=== PATIENT | male | born 1985 | race African-American/Black ===

== ENCOUNTER 2025-05-06 20:21 | Inpatient (IN) | payer OTHER ==
[~2025-05-06] VITALS: Ht 182.9 cm; Wt 159.0 kg
--- NOTE | 2025-05-06 22:11 | Physician Documentation ---
History of Present Illness ~ Chief Complaint: See Chief Complaint Stated Complaint: HEAT RELATED Time Seen by MD: 22:10 Mode of Arrival: EMS HPI Patient presents to the emergency room with nausea and vomiting and cramping. 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 States when he got home he drank a combination of water and ice cold Gatorade from the refrigerator and began to feel ill and vomiting. No prior instances. Patient is unfamiliar with [place] heat. States he did have some chest discomfort when he had some cramping in his diaphragm as reported. History of diabetes on metformin Medication Reconciliation Allergies: Coded Allergies: No Known Allergies (Unverified , 05/06/25) Review of Systems ROS All review of systems negative except as per HPI Physical Exam Vital Signs: Temperature: 99.2, Source: Oral, Heart Rate: 117, Respiratory Rate: 15, BP: 144/82, Pulse Oximetry: 94, Weight: 159.090 Physical Exam General: Patient is awake, alert, oriented x4 in no acute distress, obese Head: Normocephalic and atraumatic. Eyes: Conjunctival normal. EOMI. PERRL. ENT: Mucous membranes moist. Neck: Supple, trachea is midline. Chest: Clear to auscultation bilaterally without rales, rhonchi, or wheezes. There is no accessory muscle use or retractions. Cardiac: Tachycardic and regular without murmurs, gallops, or rubs. Abd: Soft, nondistended, nontender, with normoactive bowel sounds. No guarding, rebound, or rigidity. Progress Results/Orders Results/Orders Orders - BERHANE MACHADO MD Normal Saline 1,000ml Iv Bolus (05/06/25 23:15) Page Hospitalist (05/06/25 23:14) Fill Out Med Reconciliation (05/06/25 23:14) Completed Orders - BERHANE MACHADO MD Cbc/Diff (05/06/25 22:14) MG (05/06/25 22:14) BMP (05/06/25 22:14) Hs Troponin I W Calculations (05/06/25 22:14) Normal Saline 1000ml (0.9% Sodium Chlori (05/06/25 22:15) Ondansetron Inj. (Zofran 4mg/2ml Vial) (05/06/25 22:15) CK (05/06/25 22:17) Medications Received in ER Medications (Trade) Dose Ordered Sig/Igor Route PRN Reason Start Time Stop Time Status Last Admin Dose Admin Sodium Chloride 1,000 ml @ 1,000 mls/hr ONCE ONCE IV 05/06/25 22:15 05/06/25 23:14 05/06/25 22:21 1,000 MLS/HR (Zofran 4mg/2ml vial) 4 mg ONCE ONCE IV 05/06/25 22:15 05/06/25 22:16 DC 05/06/25 22:19 4 MG Vital Signs 05/06/25 05/06/25 05/06/25 20:23 20:28 21:00 Temp 99.2 99.2 Pulse 115 117 Resp 20 17 15 B/P (MAP) 140/75 144/82 (102) Pulse Ox 94 94 Laboratory Tests Test 05/06/25 22:31 White Blood Count 16.7 H Red Blood Count 6.08 Hemoglobin 17.7 Hematocrit 50.9 Mean Corpuscular Volume 83.8 Mean Corpuscular Hemoglobin 29.1 Mean Corpuscular Hemoglobin Concent 34.8 Red Cell Distribution Width 13.9 Platelet Count 264 Mean Platelet Volume 8.8 Neutrophils (%) (Auto) 83.8 H Lymphocytes (%) (Auto) 9.4 L Monocytes (%) (Auto) 6.5 Eosinophils (%) (Auto) 0 Basophils (%) (Auto) 0.3 Neutrophils # (Auto) 14.0 H Lymphocytes # (Auto) 1.6 Monocytes # (Auto) 1.1 H Eosinophils # (Auto) 0.0 Basophils # (Auto) 0.1 CBC Comment Sodium Level 139 Potassium Level 5.3 H Chloride Level 104 Carbon Dioxide Level 23.0 L Anion Gap 12 Blood Urea Nitrogen 22 H Creatinine 1.99 H Estimated GFR/1.73 m2 38 BUN/Creatinine Ratio 11.1 Glucose Level 111 H Calcium Level 10.0 Magnesium Level 2.1 Total Creatine Kinase 796 H Troponin I High Sensitivity 35 Albumin 5.1 H Chemistry Comments Medical Decision Making Findings Patient presented to the emergency room with vomiting and generally feeling ill as per HPI. Differentials include but are not limited to heat exhaustion, dehydration, kidney injury, electrolyte disturbances, DKA therefore emergent labs ordered which did show significant decreased renal function. We do not have any labs previously to compare this to. Given his history and home he presented to the emergency room I suspect acute kidney injury. Fluid resuscitation initiated. Departure Admitted to Inpatient Unit: yes, to hospitalist Impression: Primary Impression: Acute kidney injury Additional Impression: Heat exhaustion Condition: Guarded Referrals: NO PRIMARY CARE PROVIDER (PCP) Signature Scribe Signature: No scribe Attestation: The note accurately reflects work and decisions made by me.Berhane Machado MD 05/06/25 23:17 BERHANE MACHADO MD May 06, 2025 22:11
[2025-05-06] MEDS: ondansetron/PF 4mg/2ml inj IV ONE (22:19)
[2025-05-06] MEDS: normal saline 1000ml 1,000 ML IV ONE (22:21)
[2025-05-06 22:40] LABS: MEAN PLATELET VOLUME 8.8 FL (7.4-10.4); RED CELL DISTRIBUTION WIDTH 13.9 % (11.5-14.5)
[2025-05-06 22:53] LABS: CREATININE 1.99 MG/DL (0.60-1.10); TOTAL CARBON DIOXIDE 23.0 MMOL/L (24-32); eCRCL 56 ML/MIN; eGFR 38 ML/MIN
[2025-05-07] VITALS (8 sets, daily range): BP systolic 114–136; BP diastolic 52–78; PULSE 59–94; RESP 12–19; TEMP 97.3–97.9; O2SAT 93–99
[2025-05-07] MEDS: normal saline 1000ml 1,000 ML IV ONE (00:02)
[2025-05-07] MEDS ORDERED: METF-1203 PO (01:10)
[2025-05-07] MEDS ORDERED: TIRZ5PEN SUBCUT (02:32)
[2025-05-07] MEDS: normal saline 1000ml 1,000 ML IV SCH (02:59)
[2025-05-07] MEDS ORDERED: HYDROcodone/acetaminophen 5mg/325mg tablet PO PRN (03:20)
[2025-05-07] MEDS ORDERED: magnesium hydroxide 30ml (MOM) UD suspension PO PRN (03:20)
[2025-05-07] MEDS ORDERED: dextrose 50%-water 50ml dispensing syringe IV PRN ×2 (03:20)
[2025-05-07] MEDS ORDERED: magnesium sulf-water 2g/50mL 50 ML IV PRN (03:20)
[2025-05-07] MEDS ORDERED: DEXTROSE 15 GM of carb/4 tabs (each vial/BOTTLE has 4 tablets) PO PRN ×2 (03:20)
[2025-05-07] MEDS ORDERED: potassium Cl 40MEQ/1/2NS 520ml 520 ML IV PRN (03:20)
[2025-05-07] MEDS ORDERED: glucagon, human recombinant 1mg kit SUBCUT PRN (03:20)
[2025-05-07] MEDS ORDERED: mag hydrox/Alum hydrox/simeth 30ml oral suspension PO PRN (03:20)
[2025-05-07] MEDS ORDERED: magnesium sulf-water 4G/100mL 100 ML IV PRN (03:20)
[2025-05-07] MEDS ORDERED: potassium Cl 20 mEq SR tablet PO PRN ×2 (03:20)
[2025-05-07] MEDS ORDERED: ondansetron/PF 4mg/2ml inj IV PRN (03:20)
[2025-05-07] MEDS ORDERED: magnesium Cl slow-release 64mg tablet PO PRN (03:20)
--- NOTE | 2025-05-07 03:58 | HISTORY AND PHYSICAL-Residence ---
History & Physical Providers to CC Resident Creating Document: MASHA PIERCE, RES CC: GERRY CEDILLO MD ~ History of Present Illness Reason for Admit\Complaint: Cramps and dizziness History of Present Illness Attestation I agree with the residents assessment and plan as below: Plan: continue IVF at 150cc/hr repeat cpk Q12hr repeat bmp CCT 50 min using HIPPA compliant A/V technology A 39-year-old male with a past medical history of diabetes mellitus type 2 and sleep apnea presented to the ED in view of lightheadedness, feeling dizzy and cramping in legs and arms. Patient states that he was moving boxes about 4000 into his truck from 5:00 a.m. to 7:00 p.m. in the evening. After all the work, patient was having lot of discomfort and therefore he later. He was unable to sleep with all the cramping that has become worse in his chest arbs and the antibody. Patient also endorses vomitings and disability to read. Patient denies chills or similar episodes in the past. 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 His primary care doctor is Dr. Junior at [place], [place] ROS ROS All other systems reviewed in full and negative except for the pertinent positives mentioned in the HPI Exam Vitals: Vital Signs Date Time Temp Pulse Resp B/P (MAP) Pulse Ox O2 Delivery O2 Flow Rate FiO2 05/07/25 02:15 97.7 76 16 136/77 (96) 99 Room Air General: General: Morbidly obese young male, Alert, awake, oriented, not in acute distress HEENT: PERRLA, no icterus, pallor, lymphadenopathy, carotid bruit Respiratory system: Bilateral vesicular breath sounds heard, no adventitious breath sounds CVS: S1-S2 heard, no murmurs/rubs/gallop GI: Soft, nontender, no organomegaly, no guarding/rigidity, bowel sounds present Neuro: No focal neurological deficits present Extremities: No edema cyanosis clubbing/deformities Skin: Warm and dry Diagnostic Data Last Recorded Lab Results: 05/06/25223005/06/252230 Advance Care Planning Advanced Care plannin - 30 Minutes (I spent 20 minute discussing various resuscitative measures with the patient decided to be full code) Additional Plan Assessment: A 39-year-old male with a past medical history of diabetes 100. Presented to the ED in view of cramping and dizziness after a long day at work outdoors. Plan: Heat exhaustion GCS: 15 Elevated WBC probably secondary to hemoconcentration EKG is normal IV fluids at 150 cc/hour Continue to monitor vitals and temperature Symptomatic management Follow up with U tox Elevated CK Rhabdomyolysis 2/2 extensive work and heat exhaustion Continue IV fluids Monitor CK daily Prerenal CARA probably secondary to renal tubular stasis Elevated BUN and creatinine Continue IV fluid resuscitation Continue to monitor BMP Diabetes mellitus type 2 Follow up with A1c Low-dose sliding scale insulin Sleep apnea Morbid obesity CPAP at night Code status: Full code Diet: 75 g carb controlled DVT prophylaxis: SCD Disposition: Admit to ortho, monitor CK Masha Pierce MD Internal Medicine, PGY 2 Date of Service: May 06, 2025 Billing Provider: GERRY CEDILLO MD, SIVA, RES May 07, 2025 03:58 GERRY CEDILLO MD May 07, 2025 05:03
[2025-05-07] MEDS: INSULIN LISPRO 100 UNIT/ML INSULN.PEN MULTI-DOSE SQ SCH (06:57)
[2025-05-07] MEDS: docusate sod 100mg capsule PO SCH (07:00)
[2025-05-07 07:18] LABS: LEUKOCYTE ESTERASE ,URINE NEGATIVE (Neg); NITRITES, URINE NEGATIVE (Neg); OCCULT BLOOD,URINE NEGATIVE (Neg)
[2025-05-07 07:25] LABS: UA COLLECTION TYPE NON-SPECIFIED
[2025-05-07 07:26] LABS: URINE AMPHETAMINE SCREEN NEGATIVE (Neg); URINE BARBITUATE SCREEN NEGATIVE (Neg); URINE BENZODIAZEPINES SCREEN NEGATIVE (Neg); URINE CANNABINOID SCREEN NEGATIVE (Neg); URINE COCAINE SCREEN NEGATIVE (Neg); URINE METHADONE SCREEN NEGATIVE (Neg); URINE OPIATE SCREEN NEGATIVE (Neg); URINE PHENCYCLIDINE SCREEN NEGATIVE (Neg)
[2025-05-07] MEDS: K and/or MAG REPLACEMENT MC SCH (08:00)
--- NOTE | 2025-05-07 08:56 | RADIOLOGY REPORT ---
CHEST RADIOGRAPH Indication: sepsis Technique: Single frontal view of the chest was obtained COMPARISON: None FINDINGS: Lines and Tubes: None Lungs: Clear Pleura: No effusion. No pneumothorax. Cardiomediastinal contours: Unremarkable Bones: Unremarkable IMPRESSION: No acute disease.
[2025-05-07 09:39] LABS: CREATININE 1.34 MG/DL (0.60-1.10); MYOGLOBIN 607.0 ng/ml (16-96); TOTAL CARBON DIOXIDE 22.5 MMOL/L (24-32); eCRCL 83 ML/MIN; eGFR 73 ML/MIN
[2025-05-07 10:45] LABS: LACTATE DEHYDROGENASE 219 U/L (85-227)
--- NOTE | 2025-05-07 11:02 | PROGRESS NOTE ---
Daily Progress Note Providers to CC ~ Antibiotic Timeout Antibiotic Ordered?: No Subjective No acute events overnight. Patient examined at bedside. No new complaints. Patient denies chest pain, sob, palpitations, abdominal pain, n/v/d. Vss, labs notable for findings of intrarenal CARA, elevated myoglobin. Resolving with IVF. Objective Vital Signs Date Time Temp Pulse Resp B/P (MAP) Pulse Ox O2 Delivery O2 Flow Rate FiO2 05/07/25 10:00 97.5 94 16 114/65 (81) 93 Room Air Result Diagram: 05/06/25 2231 05/07/25 0757 Physical Exam General: A&Ox 3, NAD, morbidly obese HEENT: Normocephalic, PERRLA Neck: Supple, trachea midline, no JVD Chest: Clear to auscultation bilaterally Cardiovascular: RRR, S1&S2 GI: Soft and nontender Extremities: No cyanosis/clubbing/or edema EDITOR PUBLICATIONS: CN II-XII intact, no focal deficits Musculoskeletal: No paraspinal muscle tenderness, no muscle spasm Skin: Warm and intact Problem\Assessment\Plan A 39-year-old male with a past medical history of diabetes 100. Presented to the ED in view of cramping and dizziness after a long day at work outdoors. Assessment Rhabdomyolysis Intraraenal CARA 2/2 rhabdomyolysis SIRS w/ acute organ damage- POA -elevated CK and myoglobin, CARA resolving on IVF; infection workup negative so far and no n/v/d NIDDM JULIO C Class III obesity -A1c 5.8% Plan -continue IVF resuscitation, CPAP at night Code status: Full code Date of Service: May 07, 2025 Billing Provider: DYLAN DOS SANTOS Common Visit Codes: [id number] INP/OBS CARE(HIGH) DYLAN DOS SANTOS May 07, 2025 11:02
[2025-05-07 13:12] LABS: MEAN PLATELET VOLUME 8.9 FL (7.4-10.4); RED CELL DISTRIBUTION WIDTH 14.2 % (11.5-14.5)
[2025-05-07 22:35] LABS: CREATININE 1.35 MG/DL (0.60-1.10); TOTAL CARBON DIOXIDE 24.3 MMOL/L (24-32); eCRCL 82 ML/MIN; eGFR 72 ML/MIN
[2025-05-08 03:08] VITALS: RESP 15
[2025-05-08 06:00] VITALS: BP 123/79; PULSE 78; RESP 16; TEMP 97.9; O2SAT 98
[2025-05-08 07:53] LABS: MEAN PLATELET VOLUME 9.1 FL (7.4-10.4); RED CELL DISTRIBUTION WIDTH 14.0 % (11.5-14.5)
[2025-05-08 08:00] VITALS: RESP 16; O2SAT 94
[2025-05-08 08:20] LABS: CHOL/HDL RATIO 3.5 (0.00-4.99); CREATININE 1.16 MG/DL (0.60-1.10); LDL CHOLESTEROL 61 MG/DL (50-100); TOTAL CARBON DIOXIDE 23.6 MMOL/L (24-32); eCRCL 96 ML/MIN; eGFR 86 ML/MIN
[2025-05-08 10:00] VITALS: BP 115/57; PULSE 70; RESP 16; TEMP 97.8; O2SAT 94
--- NOTE | 2025-05-08 13:25 | DISCHARGE SUMMARY ---
Discharge Summary Providers to CC ~ Discharge Summary Admission Diagnosis: Rhabdomyolysis, CARA Hospital Course DATE OF ADMISSION: 05/06/25 DATE OF DISCHARGE: 05/08/25 Discharge Diagnosis\\Comment: Rhabdomyolysis Intraraenal CARA 2/2 rhabdomyolysis/ATN- POA SIRS w/ acute organ damage- POA Dehydration Hyperkalemia NIDDM JULIO C Class III obesity Operations\\Procedures: None Consultants: None Complications: None Condition on DC: Stable Continued Medications: Metformin HCl (Metformin HCl) 500 Mg Tablet 1 TAB PO Q12H for 30 Days, #60 TAB Tirzepatide (Mounjaro) 5 Mg/0.5 Ml Pen.injctr 5 MG SUBCUT Q7D Discharge Summary: History of Present Illness From H&P: "A 39-year-old male with a past medical history of NIDDM and JULIO C who presented to the ED in view of lightheadedness, feeling dizzy and cramping in legs and arms. Patient states that he was moving boxes about 4000 into his truck from 5:00 a.m. to 7:00 p.m. in the evening. After all the work, patient was having lot of discomfort and therefore he later. He was unable to sleep with all the cramping that has become worse in his chest and body. Patient also endorses vomitings and disability to read. Patient denies chills or similar episodes in the past." Hospital Course Diagnostic findings were notable for elevated CPK, myoglobin, hyperkalemia, transaminitis, leukocytosis, renal insufficiency with findings consistent with intrarenal secondary to myoglobinemia. Pertinent negative findings were normal lactic acid, negative procal, urinalysis negative for urinary tract infection, negative chest x-ray, normal anion gap, negative troponin, negative UDS. Patient was treated with aggressive fluid resuscitation. TTE showed normal overall systolic left ventricular function with LVEF of 55-60% without significant valvular heart disease. With the start of treatment, hyperkalemia, transaminitis, leukocytosis, acute kidney injury and reported symptoms including cramping in legs and arm, lightheadedness and dizziness significantly improved. Patient did not experience further complications throughout the entire hospital stay. Patient was seen and examined on the day of discharge. On day of discharge, vss and labs notable for resolving acute kidney injury and downtrending CPK. All labs, diagnostic workups, discharge plan discussed with patient in details during visit before discharge. All questions and concerns answered to the best of my professional knowledge. Patient ambulates independently without need of assistance. Patient is to be discharged to home to self and to follow-up with PCP within 2 weeks. Physical Exam General: A&Ox 3, NAD, morbidly obese HEENT: Normocephalic, PERRLA Neck: Supple, trachea midline, no JVD Chest: Clear to auscultation bilaterally Cardiovascular: RRR, S1&S2 GI: Soft and nontender Extremities: No cyanosis/clubbing/or edema STRAINER CLEANER: CN II-XII intact, no focal deficits Musculoskeletal: No paraspinal muscle tenderness, no muscle spasm Skin: Warm and intact *Problems/Diagnosis: (1) Heat exhaustion Status: Acute (2) Acute kidney injury Status: Acute Total Time Spent on D/C: > 30 Minutes Date of Service: May 08, 2025 Billing Provider: DYLAN DOS SANTOS Common Visit Codes: [id number] DISCH DAY >30min DYLAN DOS SANTOS May 08, 2025 13:25
--- NOTE | 2025-05-08 16:29 | CARDIOLOGY REPORT ---
APPROVED REPORT EXAM: Comprehensive 2D, Doppler, and color-flow Echocardiogram. Patient Location: 402 Blood Pressure: 131/52 mmHg Heart Rate: 77 bpm Rhythm: NSR Indications CONGESTIVE HEART FAILURE DIABETES MELLITUS BODY COVERER: None PRIOR ECHOCARDIOGRAM: None 2D Dimensions RVDd 4.0 cm IVSd 0.9 (0.7-1.1cm) LVDd 5.1 cm PWd 0.9 (0.7-1.1cm) IVSs 1.5 (0.8-1.2cm) LVDs 3.6 (2.5-4.0cm) PWs 2.1 (0.8-1.2cm) LVOT Diameter 2.05 (1.8-2.4cm) LVEF(%) 54.6 (>50%) FS (%) 28.4 % SV 67.2 ml CO 5.4 L/min M-Mode Dimensions Left Atrium(MM) 4.40 (2.5-4.0cm) Aortic Root 3.25 (2.2-3.7cm) Aortic Cusp Exc 2.31 (1.5-2.0cm) Aortic Valve AoV Peak Campbell. 145.4 cm/s AoV VTI 25.6 cm AO Peak GR. 8.5 mmHg AO Mean GR. 4 mmHg LVOT VTI 27.38 cm LVOT Peak Campbell. 110.9 cm/s KATJA(VTI)/BSA 3.52 cm2/m2 KATJA (VTI) 3.52 cm2 Mitral Valve MV E Velocity 99.3 cm/s MV Peak Gr. 4 mmHg MV DECEL TIME 140 ms MV A Velocity 83.7 cm/s MV PHT 32 ms E/A Ratio 1.2 MVA (PHT) 6.88 cm2 MV RIlz514.2 cm/s LEFT VENTRICLE Normal LV size and wall thickness. Overall systolic function is normal. LVEF is 55-60%. RIGHT VENTRICLE Right ventricle is borderline dilated. The right ventricular systolic function is normal. ATRIA Left atrium is mildly dilated. AORTIC VALVE The aortic valve is normal in structure. No insufficiency. MITRAL VALVE The mitral valve is normal in structure. No regurgitation. TRICUSPID VALVE TV appears structurally normal with no regurgitation. PULMONIC VALVE Pulmonic valve is not well visualized. GREAT VESSELS The aortic root is normal in size. The IVC is normal in size and collapses >50% with inspiration. PERICARDIUM Normal pericardium. No effusion. Other Information Study Quality: Adequate Technically limited study due to body habitus.
== END 2025-05-08 13:50 | disposition home or self-care (01) | DRG 922 ==
LOC: ER 20:22 → ED HOLD 23:26 → ORTHO 4S 05-07 02:10
PROVIDERS: ADMIT Internal Medicine; ATTEND Nurse Practitioner Family
PROC: 5A09357 Assistance with Respiratory Ventilation, Less than 24 Consecutive Hours, Continuous Positive Airway Pressure (ICD-10-PCS; 2025-05-07)
PROC: 5A09357 Assistance with Respiratory Ventilation, Less than 24 Consecutive Hours, Continuous Positive Airway Pressure (ICD-10-PCS; principal; 2025-05-08)
DX: T67.5XXA Heat exhaustion, unspecified, initial encounter (principal); N17.0 Acute kidney failure with tubular necrosis; R65.11 Systemic inflammatory response syndrome (SIRS) of non-infectious origin with acute organ dysfunction; M62.82 Rhabdomyolysis; Z68.42 Body mass index [BMI] 45.0-49.9, adult; G47.33 Obstructive sleep apnea (adult) (pediatric); E66.813 Obesity, class 3; E87.5 Hyperkalemia; R74.01 Elevation of levels of liver transaminase levels; E11.9 Type 2 diabetes mellitus without complications; X58.XXXA Exposure to other specified factors, initial encounter; Y93.89 Activity, other specified; Y92.89 Other specified places as the place of occurrence of the external cause; Y99.8 Other external cause status; Z79.84 Long term (current) use of oral hypoglycemic drugs; Z79.899 Other long term (current) drug therapy
CPT/HCPCS: 36415; 71045; 80048; 80053; 80061; 80305; 81003; 82550; 82948; 83036; 83605; 83615; 83735; 83874; 84145; 84484; 85025; 87040; 87077; 87081; 87186; 93306; 94660; 94760; 96361; 96374; 99285; G0378; J1815; J2405; J7030